=== PATIENT | female | born 1995 | race Caucasian/White ===

== ENCOUNTER 2023-01-16 08:28 | Emergency (ER) | payer OTHER ==
[~2023-01-16] VITALS: Ht 154.9 cm; Wt 72.1 kg
[2023-01-16 08:33] VITALS: BP 106/53; PULSE 84; RESP 20; TEMP 98; O2SAT 100
[2023-01-16 09:45] VITALS: BP 106/53; PULSE 84; RESP 20; TEMP 98; O2SAT 100
[2023-01-16] MEDS ORDERED: LIDOCAINE MPF 1% 10 MG/ML VIAL INJ ONE (10:25)
[2023-01-16] MEDS ORDERED: CEPH-588 PO (10:38)
[2023-01-16] MEDS ORDERED: SULF-59 PO (10:38)
== END 2023-01-16 11:25 | disposition home or self-care (01) ==
LOC: MED 08:28
DX: L02.214 Cutaneous abscess of groin (principal); Z79.899 Other long term (current) drug therapy
CPT/HCPCS: 10060; 99284; J2001

== ENCOUNTER 2023-01-18 08:37 | Emergency (ER) | payer OTHER ==
[~2023-01-18] VITALS: Ht 154.9 cm; Wt 71.7 kg
[~2023-01-18 08:37] MED LIST: CEPH-588 PO; SULF-59 PO
[2023-01-18 08:53] VITALS: BP 106/60; PULSE 77; RESP 15; TEMP 97.8; O2SAT 100
== END 2023-01-18 09:11 | disposition home or self-care (01) ==
LOC: MED 08:37
DX: Z48.01 Encounter for change or removal of surgical wound dressing (principal); Z79.2 Long term (current) use of antibiotics
CPT/HCPCS: 99281